=== PATIENT | male | born 2000 | race Two or more races ===

== ENCOUNTER 2020-11-03 13:31 | Emergency (ER) | payer OTHER ==
[~2020-11-03] VITALS: Ht 182.9 cm; Wt 117.9 kg
[2020-11-03] MEDS ORDERED: BUPROPION XL150 MG PO (13:43)
[2020-11-03] MEDS ORDERED: INTESTINEX680 M2 PO (16:20)
[2020-11-03] MEDS ORDERED: NAPROXEN375 MG PO (16:20)
[2020-11-03] MEDS ORDERED: AMOXICILLIN500 M1 PO (16:20)
[2020-11-03] MEDS ORDERED: PEPCID AC20 MG PO (16:20)
== END 2020-11-03 16:25 | disposition home or self-care (01) ==
LOC: ER 13:31
DX: S61.220A Laceration with foreign body of right index finger without damage to nail, initial encounter (principal); W45.8XXA Other foreign body or object entering through skin, initial encounter; Y93.89 Activity, other specified; Y92.098 Other place in other non-institutional residence as the place of occurrence of the external cause; Y99.8 Other external cause status